=== PATIENT | female | born 1970 ===

== ENCOUNTER 2017-04-30 12:58 | Outpatient (CLI) | payer OTHER | END 2017-04-30 13:01 | disposition home or self-care (01) | LOC: SONOGRAMA 12:58 | DX: R10.31 Right lower quadrant pain (principal) ==

== ENCOUNTER → 2017-05-05 | Day surgery (SDC) | payer OTHER | END | disposition home or self-care (01) | LOC: ADM 04-30 11:45 → AMB-ENDOS 11:45 | DX: D12.8 Benign neoplasm of rectum (principal); D12.3 Benign neoplasm of transverse colon ==

== ENCOUNTER 2017-06-17 11:11 | Outpatient (CLI) | payer OTHER | END 2017-06-17 11:13 | disposition home or self-care (01) | LOC: NUCLEAR 11:11 | DX: Q62.11 Congenital occlusion of ureteropelvic junction (principal) | CPT/HCPCS: 78708; A9539; J1940 ==

== ENCOUNTER 2018-06-15 06:18 | Day surgery (SDC) | payer OTHER | END 2018-06-15 11:35 | disposition home or self-care (01) | LOC: AMB-ENDOS 06:18 | DX: K62.1 Rectal polyp (principal); K64.8 Other hemorrhoids; Z12.11 Encounter for screening for malignant neoplasm of colon ==

== ENCOUNTER 2020-10-30 09:11 | Outpatient (CLI) | payer OTHER | END 2020-10-30 10:07 | disposition home or self-care (01) | LOC: RX STUDY 09:11 | PROVIDERS: ATTEND Colon & Rectal Surgery | DX: N82.3 Fistula of vagina to large intestine (principal) ==

== ENCOUNTER 2021-12-10 08:30 | Day surgery (SDC) | payer OTHER | END 2021-12-10 15:25 | disposition home or self-care (01) | LOC: AMB-ENDOS 08:30 | PROVIDERS: ATTEND Colon & Rectal Surgery | DX: N82.3 Fistula of vagina to large intestine (principal); Z20.822 Contact with and (suspected) exposure to COVID-19; Z86.010 Personal history of colon polyps; K64.4 Residual hemorrhoidal skin tags; J45.909 Unspecified asthma, uncomplicated; E03.9 Hypothyroidism, unspecified; I10 Essential (primary) hypertension ==